=== PATIENT | male | born 1950 | race Caucasian/White ===

== ENCOUNTER 2019-01-07 10:28 | Day surgery (SDC) | payer MEDICARE, OTHER, SELFPAY ==
[2019-01-04 15:23] VITALS: BMI 41.6
[2019-01-07] VITALS (15 sets, daily range): BP systolic 81–122; BP diastolic 33–72; PULSE 77–86; RESP 9–20; TEMP 36.4–36.8; O2SAT 91–100; BMI 41.6; BMI 43.6
--- NOTE | 2019-01-07 | PATH_ITS ---
[facility] Accession Number: [id number] . 01 Material submitted: . vertebral column - L2 VERTEBRAL BODY BIOPSY . 02 Diagnosis: Bone From L2 Vertebra: Benign bone with nonspecific marrow fibrotic changes. MRV/01/10/2019 . 02 Electronically signed: . Saturnino Alberto MD, Pathologist NPI- [id number] . 01 Gross description: . Received in formalin, labeled with the patient's name and L2 vertebral biopsy, is one thomas-brown bone core measuring 1.1 cm in length by 0.2 cm in diameter. The specimen is entirely submitted in one cassette following decalcification. (ROSELINE:[id number]) /MRV . 02 Pathologist provided ICD-10: S32.028G . 02 CPT . 224725, [id number] Performed at: 01 [facility] [address] [id number] MD Wilner Wilcox MD Phone: [phone] Performed at: 02 [facility] [address] [place] [id number] MD Sandy Bojorquez MD Phone: [phone]
--- NOTE | 2019-01-07 | DI.RAD.S_ITS ---
PROCEDURE: XR LUMBAR SPINE 2-3V INDICATIONS: lumbar spine surgery TECHNIQUE: 10 views of the lumbar spine were acquired. COMPARISON: [facility], MR, MR LUMBAR SPINE WITHOUT CONTRAST, 12/29/2018, 11:17. FINDINGS: Spot intras pelvic fluoroscopic views demonstrating presumed L2 kyphoplasty, although recommend correlation to real-time observations given limited anatomic landmarks on the exam [id number]. There is slight extrusion of cement adjacent to the L2 superior endplate Dictated by: Kp Baptiste M.D. on 01/10/2019 at 10:46 Approved by: Kp Baptiste M.D. on 01/10/2019 at 10:48
[2019-01-07] MEDS: LACTATED RINGERS 1,000 ML 42 ML IV ×2 (11:48→14:35)
--- NOTE | 2019-01-07 12:26 | PM.PREOP ---
Pre-operative Note Interval Note History & Physical reviewed/Exam performed by Physician: Yes Changes to H&P: No
[2019-01-07] MEDS: CEFAZOLIN 2 GM/100 ML FROZ.PIGGY IV (12:52)
--- NOTE | 2019-01-07 13:21 | SUR.OPER ---
Prone on padded OR bed, head in foam head support, gel chest rolls, gel pad under knees, pillow under lower legs, toes free of pressure, arms secured on padded arm boards at <90 degrees abduction. Safety belt at thigh.
[2019-01-07] MEDS: BUPIVACAINE 0.25% W/ EPI 30 ML VIAL 60 ML INJ (13:26)
--- NOTE | 2019-01-07 13:47 | PM.OP.1 ---
Operative Date/Time/Diagnoses Date of procedure: 01/07/19 Time of procedure: 13:47 Pre-op diagnosis: L2 compression fracture Osteoporosis Back pain Post-op diagnosis: same Procedure & Clinicians Procedure: L2 kyphoplasty Same procedure as scheduled: Yes Indications: [age] year old male with intractable pain from an acute L2 fracture. They had failed conservative management and requested operative intervention. Risks and benefits of surgery were discussed and appropriate consents were obtained. Surgeon: El Romero Click Yes if Unassisted: Yes Anesthesia Type: General Operative Notes Findings: None Closure Type: primary Specimen(s): other (L2 bone biopsy) Estimated Blood Loss (mL): 1 Procedure in detail: The patient was brought to the operating room and intubated on the table. They were then rolled over to the well-padded prone position. Time-out was performed. We confirmed positioning with two fluoroscopy views. The back was prepped and draped in the standard sterile fashion. Preoperative antibiotics were given. Using fluoroscopic guidance, the planned incision site was infiltrated with Marcaine with epinephrine and injected down to the entry site of the left pedicle of L2. A small stab incision was made and we advanced a Jamshiedi needle down the left pedicle into the vertebral body. A bone biopsy was harvested from this and sent to pathology. We then passed the DFine osteotome and opened it up to create a void inside the vertebral body. We then began injecting the cement. This was done with frequent fluoroscopy imaging. We had excellent fill of the inferior aspect of the bone going well across the midline. The cement did not advance up through the sclerotic superior endplate with our injection but then we did have some central extravasation into the disc space above and we stopped injecting. The trocar was removed. Final x-rays were taken. The wound was cleaned. Steri-Strips and sterile dressing were placed. Patient was rolled over, extubated, and brought to recovery without complications. Complications: none Condition: stable Disposition: PACU Plan for aftercare: Activity as tolerated. Outpatient.
[2019-01-07] MEDS: ALBUTEROL 2.5 MG/3 ML NEB (ADULT) INH (13:59)
--- NOTE | 2019-01-07 14:02 | SUR.PHASEI ---
Pt arrived, coughing, lots of clear oral secretions, pt able to clear on own, audible wheezing, Dr Pat notified, albuterol ordered and administered.
--- NOTE | 2019-01-07 14:22 | SUR.PHASEI ---
assumed care, denies pain/nausea. states that his only problem is fluid in the lungs. states that it is an ongoing problem, I'm always coughing stuff up.
--- NOTE | 2019-01-07 14:38 | SUR.PHASEI ---
Denies feeling light-headed, denies pain/nausea, Alert and oriented.
--- NOTE | 2019-01-07 14:42 | SUR.PHASEI ---
Report given - Transferred to phase II
--- NOTE | 2019-01-07 16:21 | SUR.PHASEII ---
late entry: filled pain med prescription, pt ready to go and pt left when ready and in stable condition.
--- NOTE | 2019-01-07 16:22 | SUR.PHASEI ---
Late entry: BP low, treated with hob down and fluids, bp responded, pt asymptomatic through out.
--- NOTE | 2019-01-07 16:23 | SUR.PHASEI ---
late entry: wheezing subsided after albuterol treatment given.
== END 2019-01-07 15:30 | disposition home or self-care (01) ==
PROVIDERS: PCP Family Medicine; Visit Provider Orthopaedic Surgery
PROC: (CPT 22514; principal; 2019-01-07 12:15)
DX: S32.020A Wedge compression fracture of second lumbar vertebra, initial encounter for closed fracture (principal); M54.5 Low back pain; M81.0 Age-related osteoporosis without current pathological fracture; E66.01 Morbid (severe) obesity due to excess calories; G47.30 Sleep apnea, unspecified; E66.9 Obesity, unspecified; I51.9 Heart disease, unspecified; F32.9 Major depressive disorder, single episode, unspecified; J44.9 Chronic obstructive pulmonary disease, unspecified; M19.90 Unspecified osteoarthritis, unspecified site; Z68.41 Body mass index [BMI] 40.0-44.9, adult
CPT/HCPCS: 22514; 72100; 76000; 88305; 88311; C1776; J0330; J0690; J1100; J1885; J2405; J2704; J3010; J7613